=== PATIENT | male | born 1960 | race Hispanic/Latino ===

== ENCOUNTER 2019-08-05 23:42 | Observation (INO) | payer OTHER ==
[2019-08-06] MEDS ORDERED: ONDANSETRON 4 MG/2 ML INJ IV ONE (01:06)
[2019-08-06] MEDS ORDERED: MORPHINE 4 MG/1 ML INJ IV ONE (01:06)
--- NOTE | 2019-08-06 01:23 | XRay Report ---
CHEST 2 VIEWS INDICATION / CLINICAL INFORMATION: Chest pain for one day. History of seizures. COMPARISON: None currently available. FINDINGS: SUPPORT DEVICES: There is a dual chamber left subclavian transvenous pacemaker with the tips of the p acing leads overlying the right atrial appendage and right ventricular apex. HEART / MEDIASTINUM: The heart size and pulmonary vasculature are normal. The aorta is normal in tyson juve. LUNGS / PLEURA: No significant pulmonary or pleural abnormality. No pneumothorax. ADDITIONAL FINDINGS: No significant additional findings. IMPRESSION: No acute findings. Signer Name: Sreekanth Roe MD Signed: 08/06/2019 1:19 AM Workstation Name: [id number]
--- NOTE | 2019-08-06 01:41 | Cat Scan Report ---
CT HEAD/BRAIN WO CON INDICATION / CLINICAL INFORMATION: Left leg weakness, states stumbling gait. Dizziness. TECHNIQUE: All CT scans at this location are performed using CT dose reduction for ALARA by means of automated e xposure control. COMPARISON: 09/18/2012. FINDINGS: There is mild generalized cerebral atrophy. No focal lesion or mass effect is seen. There is no evide nce of intracranial hemorrhage or major vessel occlusion. There is almost complete opacification of the left maxillary antrum. There is mild thickening of the wall of the left maxillary sinus. The other paranasal sinuses and mastoid air cells are clear. The ca lvarium is intact. IMPRESSION: 1. No acute intracranial abnormality is identified. 2. Chronic appearing left maxillary sinusitis is new since 2012. Signer Name: Sreekanth Roe MD Signed: 08/06/2019 1:36 AM Workstation Name: [id number]
[2019-08-06 01:56] LABS: Basophils % (Auto) 0.6 % (0.0-1.8); Eosinophils # (Auto) 0.1 K/mm3 (0.0-0.4); Eosinophils % (Auto) 4.4 % (0.0-4.3); Hematocrit 32.5 % (35.5-45.6); Hemoglobin 10.8 gm/dl (11.8-15.2); Lymphocytes % (Auto) 28.9 % (13.4-35.0); Mean Corpuscular HGB Conc 33 % (32-34); Mean Corpuscular Volume 80 fl (84-94); Monocytes # (Auto) 0.5 K/mm3 (0.0-0.8); Monocytes % (Auto) 15.5 % (0.0-7.3); Platelet Count 228 K/mm3 (140-440); Red Blood Count 4.04 M/mm3 (3.65-5.03); Red Cell Distribution Width 16.9 % (13.2-15.2)
--- NOTE | 2019-08-06 02:04 | Emergency Department Report ---
ED General Adult HPI - General Chief complaint: Chest Pain Stated complaint: SEIZURE, CHEST PAIN Time Seen by Provider: 08/06/19 00:37 Source: patient, EMS Mode of arrival: Stretcher Limitations: Other - History of Present Illness Initial comments: Patient is a 59-year-old male presents emergency room with complaints of substernal and left-sided chest pain that began tonight. He states the pain radiates to his jaw. He describes the pain as a heavy pressure. Patient states that he felt shortness of breath during the pain but it has since resolved. He states he was diaphoretic. He denies any radiation to the back, nausea, vomiting, leg swelling. Patient states that he also had a seizure tonight in the EMS ambulance. It was witnessed by patient's significant other and states that it lasted for a couple seconds and patient was given Versed by EMS. Patient states that for the last couple days he has felt weakness in his lower extremities which caused him to stumble while walking. He states that tonight his left leg feels weaker. He has a past medical history of DM, A. fib on eliquis, pacemaker, hypertension, hyperlipidemia, seizure, DVT/PE. He states he believes he had a stress test approximately year ago in [place]. Severity scale (0 -10): 8 - Related Data Home Medications Medication Instructions Recorded Confirmed Last Taken Apixaban [Eliquis] 5 mg PO BID 08/06/19 08/06/19 08/05/19 AtorvaSTATin [Lipitor] 40 mg PO QHS 08/06/19 08/06/19 08/05/19 EPINEPHrine [Epipen] 08/06/19 Unknown Eslicarbazepine Acetate [Aptiom] 800 mg PO BID 08/06/19 08/06/19 08/05/19 Insulin Glargine [Lantus VIAL] 21 units SUB-Q QHS 08/06/19 08/06/19 08/05/19 Olmesartan/Amlodipin/Hcthiazid 08/06/19 08/05/19 [Tribenzor 40-10-25 mg Tablet] Ondansetron HCl [Zofran] 4 mg 08/06/19 Unknown Pregabalin [Lyrica] 200 mg BID 08/06/19 08/06/19 Unknown Sertraline HCl [Zoloft] 150 mg PO 08/06/19 08/05/19 Zolpidem [Ambien] 6.15 mg PO QHS PRN 08/06/19 08/06/19 Unknown Allergies Allergy/AdvReac Type Severity Reaction Status Date / Time acetaminophen [From Lortab] Allergy Unknown Verified 08/06/19 00:39 hydrocodone Allergy Unknown Verified 08/06/19 00:39 insulin detemir Allergy Unknown Verified 08/06/19 00:39 [From Levemir U-100 Insulin] Iodine and Iodide Containing Allergy Unknown Verified 08/06/19 00:39 Produc ketorolac [From Toradol] Allergy Unknown Verified 08/06/19 00:39 lacosamide [From Vimpat] Allergy Unknown Verified 08/06/19 00:39 latex Allergy Unknown Verified 08/06/19 00:39 levetiracetam [From Keppra] Allergy Unknown Verified 08/06/19 00:39 melon Allergy Unknown Verified 08/06/19 00:39 nitroglycerin Allergy Unknown Verified 08/06/19 00:39 nut - unspecified Allergy Unknown Verified 08/06/19 00:39 oxycodone Allergy Unknown Verified 08/06/19 00:39 phenylephrine Allergy Unknown Verified 08/06/19 00:39 prednisone Allergy Unknown Verified 08/06/19 00:39 propoxyphene [From Darvon] Allergy Unknown Verified 08/06/19 00:39 pyrilamine Allergy Unknown Verified 08/06/19 00:39 tramadol Allergy Unknown Verified 08/06/19 00:39 ED Review of Systems ROS: Stated complaint: SEIZURE, CHEST PAIN Other details as noted in HPI Comment: All other systems reviewed and negative ED Past Medical Hx - Past Medical History Previous Medical History?: Yes Hx Hypertension: Yes Hx Diabetes: Yes Hx Deep Vein Thrombosis: Yes Hx Pulmonary Embolism: Yes Hx Seizures: Yes Hx Asthma: Yes - Social History Smoking Status: Never Smoker - Medications Home Medications: Home Medications Medication Instructions Recorded Confirmed Last Taken Type Apixaban [Eliquis] 5 mg PO BID 08/06/19 08/06/19 08/05/19 History AtorvaSTATin [Lipitor] 40 mg PO QHS 08/06/19 08/06/19 08/05/19 History EPINEPHrine [Epipen] 08/06/19 Unknown History Eslicarbazepine Acetate [Aptiom] 800 mg PO BID 08/06/19 08/06/1920 History Insulin Glargine [Lantus VIAL] 21 units SUB-Q QHS 08/06/19 08/06/19 08/05/19 History Olmesartan/Amlodipin/Hcthiazid 08/06/19 08/05/19 History [Tribenzor 40-10-25 mg Tablet] Ondansetron HCl [Zofran] 4 mg 08/06/19 Unknown History Pregabalin [Lyrica] 200 mg BID 08/06/19 08/06/19 Unknown History Sertraline HCl [Zoloft] 150 mg PO 08/06/19 08/05/19 History Zolpidem [Ambien] 6.15 mg PO QHS PRN 08/06/19 08/06/19 Unknown History ED Physical Exam - General Limitations: Other General appearance: alert, in no apparent distress - Head Head exam: Present: atraumatic, normocephalic - Eye Eye exam: Present: normal appearance, PERRL, EOMI - ENT ENT exam: Present: mucous membranes moist - Respiratory Respiratory exam: Present: normal lung sounds bilaterally. Absent: respiratory distress, wheezes, rales, rhonchi, stridor, chest wall tenderness, accessory muscle use, decreased breath sounds, prolonged expiratory - Cardiovascular Cardiovascular Exam: Present: regular rate, normal rhythm, normal heart sounds. Absent: systolic murmur, diastolic murmur, rubs, gallop - Neurological Exam Neurological exam: Present: alert, oriented X3, CN II-XII intact, other (normal finger to nose, no pronator drift, no facial asymmetry, 5/5 strength in the BUE, 5/5 strength in the RLE, 4/5 strength in the LLE) - Psychiatric Psychiatric exam: Present: normal affect, normal mood - Skin Skin exam: Present: warm, dry, intact ED Course Vital Signs 08/06/19 08/06/19 08/06/19 00:13 00:18 00:55 Temperature 98.0 F Pulse Rate 67 74 Respiratory 18 18 12 Rate Blood Pressure 141/73 141/73 O2 Sat by Pulse 99 98 Oximetry 08/06/19 08/06/19 08/06/19 01:00 01:30 02:00 Temperature Pulse Rate 68 62 63 Respiratory 13 14 10 L Rate Blood Pressure 141/73 133/79 152/79 O2 Sat by Pulse 99 98 97 Oximetry 08/06/19 02:31 Temperature Pulse Rate 65 Respiratory 11 L Rate Blood Pressure 133/79 O2 Sat by Pulse 96 Oximetry ED Medical Decision Making - Lab Data Result diagrams: 08/06/19 01:29 08/06/19 01:29 Critical care attestation.: If time is entered above; I have spent that time in minutes in the direct care of this critically ill patient, excluding procedure time. ED Disposition Clinical Impression: Seizure Chest pain Qualifiers: Chest pain type: unspecified Qualified Code(s): R07.9 - Chest pain, unspecified Leg weakness Qualifiers: Laterality: left Qualified Code(s): R29.898 - Other symptoms and signs involving the musculoskeletal system Disposition: -09 OP ADMIT IP TO THIS HOSP Is pt being admited?: Yes Does the pt Need Aspirin: Yes Condition: Fair Instructions: Chest Pain (ED) Time of Disposition: 03:55 Print Language: MONGOLIAN
[2019-08-06 02:05] LABS: INR 0.96 (0.87-1.13)
[2019-08-06 02:06] LABS: Partial Thromboplastin Time 23.8 Sec. (24.2-36.6)
[2019-08-06 02:21] LABS: Alanine Aminotransferase 15 units/L (7-56); Albumin 4.2 g/dL (3.9-5); BUN/Creatinine Ratio 16; Blood Urea Nitrogen 11 mg/dL (9-20); Calcium 9.4 mg/dL (8.4-10.2); Hemolysis Index 4
[2019-08-06] MEDS ORDERED: HYDROmorphone 1 MG/1 ML INJ IV ONE (03:44)
[2019-08-06] MEDS ORDERED: ASPIRIN 81 MG TAB CHEW PO ONE (03:55)
[2019-08-06] MEDS ORDERED: ONDANSETRON 4 MG/2 ML INJ IV PRN ×2 (03:56→08:10)
--- NOTE | 2019-08-06 04:34 | History and Physical Report ---
History of Present Illness Date of examination: 08/06/19 Date of admission: 08/06/2019 Chief complaint: " Not feeling well since yesterday" History of present illness: Patient is 59-year-old male with a past medical history of asthma, type 2 diabetes, DVT, A. fib, seizures and hypertension. He presents to ER with complaints of general weakness and not feeling well since yesterday. Patient states he was at dinner this evening when he started having left-sided chest pain. He describes it as sharp in nature, 3 out of 10 and radiates to jaw. Patient also admits recent fall this evening with bruising to right side chest wall, he states he has been feeling unsteady since yesterday evening. He reports Seizure activity en route to [facility] by EMS that was witnessed by partner and lasting for a couple seconds. Patient states prior to my his last seizure was yesterday and prior to that 1 month ago. He denies headaches, dizziness, nausea or vomiting at this time. Past History Past Medical History: other (As noted in HPI) Past Surgical History: cholecystectomy, Other (Pacemaker) Social history: Family history: hypertension Medications and Allergies Allergies Allergy/AdvReac Type Severity Reaction Status Date / Time acetaminophen [From Lortab] Allergy Unknown Verified 08/06/19 00:39 hydrocodone Allergy Unknown Verified 08/06/19 00:39 insulin detemir Allergy Unknown Verified 08/06/19 00:39 [From Levemir U-100 Insulin] Iodine and Iodide Containing Allergy Unknown Verified 08/06/19 00:39 Produc ketorolac [From Toradol] Allergy Unknown Verified 08/06/19 00:39 lacosamide [From Vimpat] Allergy Unknown Verified 08/06/19 00:39 latex Allergy Unknown Verified 08/06/19 00:39 levetiracetam [From Keppra] Allergy Unknown Verified 08/06/19 00:39 melon Allergy Unknown Verified 08/06/19 00:39 nitroglycerin Allergy Unknown Verified 08/06/19 00:39 nut - unspecified Allergy Unknown Verified 08/06/19 00:39 oxycodone Allergy Unknown Verified 08/06/19 00:39 phenylephrine Allergy Unknown Verified 08/06/19 00:39 prednisone Allergy Unknown Verified 08/06/19 00:39 propoxyphene [From Darvon] Allergy Unknown Verified 08/06/19 00:39 pyrilamine Allergy Unknown Verified 08/06/19 00:39 tramadol Allergy Unknown Verified 08/06/19 00:39 Home Medications Medication Instructions Recorded Confirmed Last Taken Type Apixaban [Eliquis] 5 mg PO BID 08/06/19 08/06/19 08/05/19 History AtorvaSTATin [Lipitor] 40 mg PO QHS 08/06/19 08/06/19 08/05/19 History Eslicarbazepine Acetate [Aptiom] 800 mg PO BID 08/06/19 08/06/19 08/05/19 History Insulin Glargine [Lantus VIAL] 21 units SUB-Q QHS 08/06/19 08/06/19 08/05/19 History Lispro Insulin [HumaLOG] 0 unit SQ QACHS 08/06/19 08/06/19 Unknown History Olmesartan/Amlodipin/Hcthiazid 1 tab PO QDAY 08/06/19 08/06/19 Unknown History [Tribenzor 40-10-25 mg Tablet] Ondansetron HCl [Zofran] 4 mg PO Q6HR PRN 08/06/19 08/06/19 Unknown History Pregabalin [Lyrica] 200 mg QAM 08/06/19 08/06/19 1 Day Ago History ~08/05/19 Pregabalin [Lyrica] 400 mg PO QHS 08/06/19 08/06/19 1 Day Ago History ~08/05/19 Sertraline HCl [Zoloft] 150 mg PO QHS 08/06/19 08/06/19 08/05/19 History Zolpidem [Ambien] 6.15 mg PO QHS PRN 08/06/19 08/06/19 Unknown History Active Meds: Active Medications Ondansetron HCl (Zofran) 4 mg IV Q8H PRN PRN Reason: Nausea And Vomiting Sodium Chloride (Sodium Chloride Flush Syringe 10 Ml) 10 ml IV BID LORI Sodium Chloride (Sodium Chloride Flush Syringe 10 Ml) 10 ml IV PRN PRN PRN Reason: LINE FLUSH Review of Systems All systems: negative Constitutional: fatigue, weakness Cardiovascular: chest pain Neurological: gait dysfunction Exam - Physical Exam Narrative exam: General appearance: Present: no acute distress - EENT Eyes: Present: PERRL ENT: hearing intact, clear oral mucosa - Neck Neck: Present: supple, normal ROM - Respiratory Respiratory effort: normal Respiratory: bilateral: CTA - Cardiovascular Heart Sounds: Present: S1 & S2. Absent: rub, click - Extremities Extremities: pulses symmetrical, No edema Peripheral Pulses: within normal limits - Abdominal General gastrointestinal: Present: soft, non-tender, non-distended, normal bowel sounds genitourinary: Present: normal - Integumentary Integumentary: Present: clear, warm, dry - Musculoskeletal Musculoskeletal: strength equal bilaterally - Psychiatric Psychiatric: appropriate mood/affect, intact judgment & insight - Neurologic Neurologic: CNII-XII intact, moves all extremities - Constitutional Vitals: Temp Pulse Resp BP Pulse Ox 98.0 F 65 11 L 133/79 96 08/06/19 00:13 08/06/19 02:31 08/06/19 02:31 08/06/19 02:31 08/06/19 02:31 Results - Labs CBC & Chem 7: 08/06/19 11:04 08/06/19 11:04 Labs: Laboratory Last Values WBC 3.4 K/mm3 (4.5-11.0) L 08/06/19 01:29 RBC 4.04 M/mm3 (3.65-5.03) 08/06/19 01:29 Hgb 10.8 gm/dl (11.8-15.2) L 08/06/19 01:29 Hct 32.5 % (35.5-45.6) L 08/06/19 01:29 MCV 80 fl (84-94) L 08/06/19 01:29 MCH 27 pg (28-32) L 08/06/19 01:29 MCHC 33 % (32-34) 08/06/19 01:29 RDW 16.9 % (13.2-15.2) H 08/06/19 01:29 Plt Count 228 K/mm3 (140-440) 08/06/19 01:29 Lymph % (Auto) 28.9 % (13.4-35.0) 08/06/19 01:29 [place] % (Auto) 15.5 % (0.0-7.3) H 08/06/19 01:29 Eos % (Auto) 4.4 % (0.0-4.3) H 08/06/19 01:29 Baso % (Auto) 0.6 % (0.0-1.8) 08/06/19 01:29 Lymph # 1.0 K/mm3 (1.2-5.4) L 08/06/19 01:29 [place] # 0.5 K/mm3 (0.0-0.8) 08/06/19 01:29 Eos # 0.1 K/mm3 (0.0-0.4) 08/06/19 01:29 Baso # 0.0 K/mm3 (0.0-0.1) 08/06/19 01:29 Seg Neutrophils % 50.6 % (40.0-70.0) 08/06/19 01:29 Seg Neutrophils # 1.7 K/mm3 (1.8-7.7) L 08/06/19 01:29 PT 12.9 Sec. (12.2-14.9) 08/06/19 01:29 INR 0.96 (0.87-1.13) 08/06/19 01:29 APTT 23.8 Sec. (24.2-36.6) L 08/06/19 01:29 Sodium 144 mmol/L (137-145) 08/06/19 01:29 Potassium 3.9 mmol/L (3.6-5.0) 08/06/19 01:29 Chloride 105.2 mmol/L (98-107) 08/06/19 01:29 Carbon Dioxide 26 mmol/L (22-30) 08/06/19 01:29 Anion Gap 17 mmol/L 08/06/19 01:29 BUN 11 mg/dL (9-20) 08/06/19 01:29 Creatinine 0.7 mg/dL (0.8-1.5) L 08/06/19 01:29 Estimated GFR > 60 ml/min 08/06/19 01:29 BUN/Creatinine Ratio 16 % 08/06/19 01:29 Glucose 159 mg/dL (75-100) H 08/06/19 01:29 Calcium 9.4 mg/dL (8.4-10.2) 08/06/19 01:29 Phosphorus 2.80 mg/dL (2.5-4.5) 08/06/19 01:29 Magnesium 1.90 mg/dL (1.7-2.3) 08/06/19 01:29 Total Bilirubin < 0.20 mg/dL (0.1-1.2) 08/06/19 01:29 AST 20 units/L (5-40) 08/06/19 01:29 ALT 15 units/L (7-56) 08/06/19 01:29 Alkaline Phosphatase 113 units/L (35-129) 08/06/19 01:29 Troponin T < 0.010 ng/mL (0.00-0.029) 08/06/19 01:29 Total Protein 7.1 g/dL (6.3-8.2) 08/06/19 01:29 Albumin 4.2 g/dL (3.9-5) 08/06/19 01: Albumin/Globulin Ratio 1.4 % 08/06/19 01:29 - Imaging and Cardiology Chest x-ray: report reviewed (No acute findings.) CT Scan - head: report reviewed (1. No acute intracranial abnormality is identified. 2. Chronic appearing left maxillary sinusitis is new since 2012.) Assessment and Plan Assessment and plan: The patient has been seen in conjunction with Dr. Lantigua who agrees with the assessment and plan of care. Atypical Chest Pain -Initiate chest pain protocol -Continuous telemetry monitoring -Continue supportive care -Pain mgmt -Troponin normal x1, will continue to trend -EKG unrevealing for acute ischemic abnormalities -Cardiology consulted Seizure -Continue home meds once reconciled -Implement seizure precautions -Consult neurology -Frequent neuro checks -Supportive care Diabetes mellitus -Accu-Chek achs -Monitor labs DVT -SCDs bilaterally -prophylaxis with Lovenox VTE prophylaxis?: Chemical Plan of care discussed with patient/family: Yes
[2019-08-06] MEDS ORDERED: HYDROmorphone 1 MG/1 ML INJ IV PRN (05:34)
[2019-08-06] MEDS ORDERED: MORPHINE 2 MG/1 ML INJ IV PRN (08:10)
[2019-08-06] MEDS ORDERED: MAGNESIUM HYDROXIDE (MOM) ORAL LIQD UDC PO PRN (08:10)
[2019-08-06] MEDS ORDERED: ACETAMINOPHEN 325 MG TAB PO PRN (08:10)
[2019-08-06] MEDS ORDERED: LORazepam 2 MG/ML VIAL ONE ×2 (10:52→12:07)
--- NOTE | 2019-08-06 11:01 | Progress Note ---
Subjective Date of service: 08/06/19 Interval history: clearly there is moderate frontal cortical atrophy that I would not expect to see at age 59 this bears checking out recommend definitely MRI of the brain Objective - Vital Sign Vital Signs - 12hr 08/06/19 08/06/19 08/06/19 00:13 00:18 00:55 Temperature 98.0 F Pulse Rate 67 74 Respiratory 18 18 12 Rate Blood Pressure 141/73 141/73 Blood Pressure [Right] O2 Sat by Pulse 99 98 Oximetry 08/06/19 08/06/19 08/06/19 01:00 01:30 02:00 Temperature Pulse Rate 68 62 63 Respiratory 13 14 10 L Rate Blood Pressure 141/73 133/79 152/79 Blood Pressure [Right] O2 Sat by Pulse 99 98 97 Oximetry 08/06/19 08/06/19 08/06/19 02:31 03:00 03:31 Temperature Pulse Rate 65 60 63 Respiratory 11 L 12 12 Rate Blood Pressure 133/79 142/79 142/79 Blood Pressure [Right] O2 Sat by Pulse 96 96 98 Oximetry 08/06/19 08/06/19 08/06/19 04:00 04:31 05:01 Temperature Pulse Rate 60 61 67 Respiratory 11 L 13 13 Rate Blood Pressure 154/79 154/79 155/73 Blood Pressure [Right] O2 Sat by Pulse 97 100 90 Oximetry 08/06/19 08/06/19 08/06/19 05:31 06:00 06:31 Temperature Pulse Rate 71 70 70 Respiratory 11 L 11 L 12 Rate Blood Pressure 155/73 158/83 158/83 Blood Pressure [Right] O2 Sat by Pulse 99 95 97 Oximetry 08/06/19 08/06/19 08/06/19 07:00 08:00 08:31 Temperature Pulse Rate 70 70 70 Respiratory 11 L 13 13 Rate Blood Pressure 159/93 155/93 155/93 Blood Pressure [Right] O2 Sat by Pulse 97 97 99 Oximetry 08/06/19 08/06/19 08/06/19 08:35 08:41 08:50 Temperature Pulse Rate 70 71 70 Respiratory 13 12 15 Rate Blood Pressure 155/93 155/93 Blood Pressure 155/93 [Right] O2 Sat by Pulse 99 98 Oximetry 08/06/19 09:28 Temperature 97.9 F Pulse Rate 70 Respiratory 18 Rate Blood Pressure 157/92 Blood Pressure [Right] O2 Sat by Pulse 98 Oximetry - Laboratory Findings CBC and BMP: 08/06/19 01:29 08/06/19 01:29 Abnormal Lab Findings: Abnormal Labs 08/06/19 08/06/19 08/06/19 01:29 01:29 01:29 WBC 3.4 L Hgb 10.8 L Hct 32.5 L MCV 80 L MCH 27 L RDW 16.9 H Mcmullen % (Auto) 15.5 H Eos % (Auto) 4.4 H Lymph # 1.0 L Seg Neutrophils # 1.7 L APTT 23.8 L Creatinine 0.7 L Glucose 159 H
[2019-08-06 11:27] LABS: Basophils % (Auto) 0.9 % (0.0-1.8); Eosinophils # (Auto) 0.1 K/mm3 (0.0-0.4); Eosinophils % (Auto) 4.7 % (0.0-4.3); Hematocrit 33.1 % (35.5-45.6); Hemoglobin 10.6 gm/dl (11.8-15.2); Lymphocytes # (Auto) 0.9 K/mm3 (1.2-5.4); Lymphocytes % (Auto) 30.2 % (13.4-35.0); Mean Corpuscular HGB Conc 32 % (32-34); Mean Corpuscular Volume 81 fl (84-94); Monocytes # (Auto) 0.5 K/mm3 (0.0-0.8); Monocytes % (Auto) 15.4 % (0.0-7.3); Platelet Count 225 K/mm3 (140-440); Red Blood Count 4.08 M/mm3 (3.65-5.03); Red Cell Distribution Width 16.3 % (13.2-15.2)
[2019-08-06 11:39] LABS: BUN/Creatinine Ratio 13; Blood Urea Nitrogen 8 mg/dL (9-20); Calcium 9.1 mg/dL (8.4-10.2)
[2019-08-06 11:40] LABS: Hemolysis Index 1
--- NOTE | 2019-08-06 12:33 | Event Note ---
Patient seen and evaluated by me. Patient found to have atypical presentation of seizure. Suspect malingering for secondary gain. Patient seizure activity spontaneously resolved, and patient requesting IV opioid therapy. A review of patient records reveals history of IV drug dependence. Continue supportive care. Neurology consulted. Discharge planning in a.m.
--- NOTE | 2019-08-06 12:50 | Consultation ---
History of Present Illness Consult date: 08/06/19 Requesting physician: NORAH CALDERON Consult reason: chest pain History of present illness: 59-year-old patient with history of pacemaker HIV history of drug abuse seizure disorder called EMS for having seizures disorder left-sided chest pain. Patient another seizure activity. Patient history is given by his partner and review records patient's cardiac cath revealed normal coronary stent in April 2019. Patient states some exertional type symptoms as per the partner. Noncardiac chest pain as a review of records from [facility] Past History Past Medical History: diabetes, hypertension, hyperlipidemia, other (As noted in HPI, hiv, htn) Past Surgical History: cholecystectomy, Other (Pacemaker) Social history: Family history: hypertension Medications and Allergies Allergies Allergy/AdvReac Type Severity Reaction Status Date / Time acetaminophen [From Lortab] Allergy Unknown Verified 08/06/19 00:39 hydrocodone Allergy Unknown Verified 08/06/19 00:39 insulin detemir Allergy Unknown Verified 08/06/19 00:39 [From Levemir U-100 Insulin] Iodine and Iodide Containing Allergy Unknown Verified 08/06/19 00:39 Produc ketorolac [From Toradol] Allergy Unknown Verified 08/06/19 00:39 lacosamide [From Vimpat] Allergy Unknown Verified 08/06/19 00:39 latex Allergy Unknown Verified 08/06/19 00:39 levetiracetam [From Keppra] Allergy Unknown Verified 08/06/19 00:39 melon Allergy Unknown Verified 08/06/19 00:39 nitroglycerin Allergy Unknown Verified 08/06/19 00:39 nut - unspecified Allergy Unknown Verified 08/06/19 00:39 oxycodone Allergy Unknown Verified 08/06/19 00:39 phenylephrine Allergy Unknown Verified 08/06/19 00:39 prednisone Allergy Unknown Verified 08/06/19 00:39 propoxyphene [From Darvon] Allergy Unknown Verified 08/06/19 00:39 pyrilamine Allergy Unknown Verified 08/06/19 00:39 tramadol Allergy Unknown Verified 08/06/19 00:39 Home Medications Medication Instructions Recorded Confirmed Last Taken Type Apixaban [Eliquis] 5 mg PO BID 08/06/19 08/06/19 08/05/19 History AtorvaSTATin [Lipitor] 40 mg PO QHS 08/06/19 08/06/19 08/05/19 History Eslicarbazepine Acetate [Aptiom] 800 mg PO BID 08/06/19 08/06/19 08/05/19 History Insulin Glargine [Lantus VIAL] 21 units SUB-Q QHS 08/06/19 08/06/19 08/05/19 History Lispro Insulin [HumaLOG] 0 unit SQ QACHS 08/06/19 08/06/19 Unknown History Olmesartan/Amlodipin/Hcthiazid 1 tab PO QDAY 08/06/19 08/06/19 Unknown History [Tribenzor 40-10-25 mg Tablet] Ondansetron HCl [Zofran] 4 mg PO Q6HR PRN 08/06/19 08/06/19 Unknown History Pregabalin [Lyrica] 200 mg QAM 08/06/19 08/06/19 1 Day Ago History ~08/05/19 Pregabalin [Lyrica] 400 mg PO QHS 08/06/19 08/06/19 1 Day Ago History ~08/05/19 Sertraline HCl [Zoloft] 150 mg PO QHS 08/06/19 08/06/19 08/05/19 History Zolpidem [Ambien] 6.15 mg PO QHS PRN 08/06/19 08/06/19 Unknown History Active Meds: Active Medications Acetaminophen (Tylenol) 650 mg PO Q4H PRN PRN Reason: Pain MILD(1-3)/Fever >100.5/MATHUR Aspirin (Ecotrin) 325 mg PO QDAY LORI Hydromorphone HCl (Dilaudid) 0.25 mg IV Q3H PRN PRN Reason: Pain, Moderate (4-6) Phenytoin 1,000 mg/ Sodium (Chloride) 270 mls @ 500 mls/hr IV ONCE ONE Stop: 08/06/19 13:32 Magnesium Hydroxide (Milk Of Magnesia) 30 ml PO Q4H PRN PRN Reason: Constipation Morphine Sulfate (Morphine) 2 mg IV Q4H PRN PRN Reason: Pain, Moderate (4-6) Last Admin: 08/06/19 08:42 Dose: 2 mg Documented by: Ondansetron HCl (Zofran) 4 mg IV Q8H PRN PRN Reason: Nausea And Vomiting Sodium Chloride (Sodium Chloride Flush Syringe 10 Ml) 10 ml IV BID [facility] Last Admin: 08/06/19 11:08 Dose: 10 ml Documented by: Sodium Chloride (Sodium Chloride Flush Syringe 10 Ml) 10 ml IV PRN PRN PRN Reason: LINE FLUSH Review of Systems ROS unobtainable: due to mental status All systems: negative (as per) Physical Examination Vital Signs Temp Pulse Resp BP Pulse Ox 98.0 F 67 18 141/73 99 08/06/19 00:13 08/06/19 00:13 08/06/19 00:13 08/06/19 00:13 08/06/19 00:13 General appearance: no acute distress, well-nourished HEENT: Positive: PERRL, Mucus Membranes Moist Neck: Positive: neck supple, trachea midline Cardiac: Positive: Reg Rate and Rhythm, S1/S2. Negative: Audible Murmur Lungs: Positive: clear to auscultation, Normal Breath Sounds Neuro: Positive: Other (sedated) Abdomen: Positive: Soft, Active Bowel Sounds. Negative: Tender, Distended Male genitourinary: Positive: normal Skin: Positive: Clear Incision: Cardiac Cath Site Musculoskeletal: No Pain, Normal Range of Motion Extremities: Present: normal. Absent: edema Results 08/06/19 11:04 08/06/19 11:04 Cardiac Enzymes 08/06/19 Range/Units 01:29 AST 20 (5-40) units/L Coagulation 08/06/19 Range/Units 01:29 PT 12.9 (12.2-14.9) Sec. INR 0.96 (0.87-1.13) APTT 23.8 L (24.2-36.6) Sec. CBC 08/06/19 08/06/19 Range/Units 01:29 11:04 WBC 3.4 L 3.1 L (4.5-11.0) K/mm3 RBC 4.04 4.08 (3.65-5.03) M/mm3 Hgb 10.8 L 10.6 L (11.8-15.2) gm/dl Hct 32.5 L 33.1 L (35.5-45.6) % Plt Count 228 225 (140-440) K/mm3 Lymph # 1.0 L 0.9 L (1.2-5.4) K/mm3 [place]isher # 0.5 0.5 (0.0-0.8) K/mm3 Eos # 0.1 0.1 (0.0-0.4) K/mm3 Baso # 0.0 0.0 (0.0-0.1) K/mm3 Comprehensive Metabolic Panel 08/06/19 08/06/19 Range/Units 01:29 11:04 Sodium 144 144 (137-145) mmol/L Potassium 3.9 3.6 (3.6-5.0) mmol/L Chloride 105.2 104.8 (98-107) mmol/L Carbon Dioxide 26 25 (22-30) mmol/L BUN 11 8 L (9-20) mg/dL Creatinine 0.7 L 0.6 L (0.8-1.5) mg/dL Glucose 159 H 129 H (75-100) mg/dL Calcium 9.4 9.1 (8.4-10.2) mg/dL AST 20 (5-40) units/L ALT 15 (7-56) units/L Alkaline Phosphatase 113 (35-129) units/L Total Protein 7.1 (6.3-8.2) g/dL Albumin 4.2 (3.9-5) g/dL - Imaging and Cardiology Cardiac cath: report reviewed (05/24/2019 normal coronaries normal LV function done at [facility]) EKG interpretations - Telemetry EKG Rhythm: Sinus Rhythm (normal sinus rhythm and no ST-T abnormalities) Assessment and Plan Atypical chest pain S seizure disorder HIV Hypertension aoltered Mental status secondary to seizure Diabetes hyperlipidemia Recommend in view of records patient has normal coronaries on cardiac cath negative troponin and normal EKG patient's left-sided chest pain is noncardiac may be discharged from cardiovascular point of view, discussed the result with patient's partner
[2019-08-06] MEDS ORDERED: PHENYTOIN 1,000 MG in SODIUM CHLORIDE 0.9% 250ML 250 ML IV ONE (13:00)
[2019-08-06] MEDS ORDERED: LORazepam 2 MG/ML VIAL IV ONE (16:16)
[2019-08-06] MEDS ORDERED: INSULIN LISPRO 100 UNIT/ML SUB-Q SCH (16:30)
[2019-08-06 18:02] VITALS: BP 187/86
[2019-08-07] MEDS ORDERED: ASPIRIN EC 325 MG TAB PO SCH (10:00)
== END 2019-08-06 18:42 | disposition left against medical advice (07) ==
LOC: ED 23:42 → 4A 08-06 03:56
PROVIDERS: ADMIT Internal Medicine Geriatric Medicine; ATTEND Internal Medicine
DX: R07.89 Other chest pain (principal); J45.909 Unspecified asthma, uncomplicated; E11.9 Type 2 diabetes mellitus without complications; I48.91 Unspecified atrial fibrillation; R41.82 Altered mental status, unspecified; I10 Essential (primary) hypertension; G40.909 Epilepsy, unspecified, not intractable, without status epilepticus; E78.5 Hyperlipidemia, unspecified; Z79.01 Long term (current) use of anticoagulants; Z79.82 Long term (current) use of aspirin
CPT/HCPCS: 36415; 70450; 71046; 80048; 80053; 82962; 83735; 84100; 84484; 85025; 85610; 85730; 93005; 93010; 96365; 96372; 96375; 96376; 99284; G0378; J1165; J1170; J2060; J2270; J2405; J7050; 96366

== ENCOUNTER 2020-09-29 12:17 | Observation (INO) | payer BC, OTHER ==
[2020-09-29] MEDS ORDERED: ASPIRIN 325 MG TAB PO ONE ×2 (12:24→22:35)
[2020-09-29] MEDS ORDERED: MORPHINE 4 MG/1 ML INJ IV ONE ×2 (12:41→15:26)
--- NOTE | 2020-09-29 12:46 | Emergency Department Report ---
ED Chest Pain HPI - General Chief Complaint: Chest Pain Stated Complaint: CHEST PAIN Time Seen by Provider: 09/29/20 12:34 Source: patient Mode of arrival: Stretcher Limitations: No Limitations - History of Present Illness Initial Comments: This is a 60-year-old male who presents to the emergency department via EMS with a complaint of some midsternal to left-sided chest pain, along with some radiation to the left shoulder and jaw, that started prior to presentation. It is associated with some nausea and vomiting. He denies any shortness of breath, fever, diaphoresis, lower extremity swelling. The patient says that he took some Tylenol for his symptoms without any relief. 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 No recent travel or sick contacts at home. His primary care physician is a Dr. Uriel Pickens and his rn acute is a Dr. Gomez. Patient says that he last had a cardiac catheterization done in 2019 that was negative at that time. The patient was seen here about 14 months ago for recurrent seizures and some chest discomfort and had a cardiology consultation with [facility] at that time. - Related Data Home Medications Medication Instructions Recorded Confirmed Last Taken Apixaban [Eliquis] 5 mg PO BID 08/06/19 09/29/20 08/05/19 AtorvaSTATin [Lipitor] 40 mg PO QHS 08/06/19 09/29/20 08/05/19 Eslicarbazepine Acetate [Aptiom] 800 mg PO BID 08/06/19 09/29/20 08/05/19 Insulin Glargine [Lantus VIAL] 28 units SUB-Q QHS 08/06/19 09/29/20 08/05/19 Lispro Insulin [HumaLOG] 0 unit SQ QACHS 08/06/19 09/29/20 Unknown Ondansetron HCl [Zofran] 4 mg PO Q6HR PRN 08/06/19 09/29/20 Unknown Pregabalin [Lyrica] 200 mg QAM 08/06/19 09/29/20 1 Day Ago ~08/05/19 Pregabalin [Lyrica] 400 mg PO QHS 08/06/19 09/29/20 1 Day Ago ~08/05/19 Sertraline HCl [Zoloft] 150 mg PO QHS 08/06/19 09/29/20 08/05/19 Zolpidem [Ambien] 6.15 mg PO QHS PRN 08/06/19 09/29/20 Unknown Allergies Allergy/AdvReac Type Severity Reaction Status Date / Time acetaminophen [From Lortab] Allergy Unknown Verified 08/06/19 00:39 hydrocodone Allergy Unknown Verified 08/06/19 00:39 insulin detemir Allergy Unknown Verified 08/06/19 00:39 [From Levemir U-100 Insulin] Iodine and Iodide Containing Allergy Unknown Verified 08/06/19 00:39 Produc ketorolac [From Toradol] Allergy Unknown Verified 08/06/19 00:39 lacosamide [From Vimpat] Allergy Unknown Verified 08/06/19 00:39 latex Allergy Unknown Verified 08/06/19 00:39 levetiracetam [From Keppra] Allergy Unknown Verified 08/06/19 00:39 melon Allergy Unknown Verified 08/06/19 00:39 nitroglycerin Allergy Unknown Verified 08/06/19 00:39 nut - unspecified Allergy Unknown Verified 08/06/19 00:39 oxycodone Allergy Unknown Verified 08/06/19 00:39 phenylephrine Allergy Unknown Verified 08/06/19 00:39 prednisone Allergy Unknown Verified 08/06/19 00:39 propoxyphene [From Darvon] Allergy Unknown Verified 08/06/19 00:39 pyrilamine Allergy Unknown Verified 08/06/19 00:39 tramadol Allergy Unknown Verified 08/06/19 00:39 Heart Score - HEART Score History: Moderately suspicious EKG: Normal Age: 45-65 Risk factors: > 3 risk factors or hx of atherosclerotic disease Troponin: < normal limit HEART Score: 4 - Critical Actions Critical Actions: 0-3 pts:0.9-1.7%risk of adverse cardiac event.Candidate for discharge ED Review of Systems ROS: Stated complaint: CHEST PAIN Other details as noted in HPI Comment: All other systems reviewed and negative Constitutional: denies: chills, fever Eyes: denies: eye pain, vision change ENT: denies: ear pain, throat pain Respiratory: denies: cough, shortness of breath Cardiovascular: chest pain. denies: palpitations, edema Gastrointestinal: nausea. denies: abdominal pain Genitourinary: denies: dysuria, discharge Musculoskeletal: arthralgia. denies: back pain Skin: denies: rash, lesions Neurological: denies: headache, weakness ED Past Medical Hx - Past Medical History Previous Medical History?: Yes Hx Hypertension: Yes Hx Diabetes: Yes Hx Deep Vein Thrombosis: Yes Hx Pulmonary Embolism: Yes Hx Seizures: Yes Hx Asthma: Yes - Surgical History Past Surgical History?: Yes - Social History Smoking Status: Never Smoker Substance Use Type: None - Medications Home Medications: Home Medications Medication Instructions Recorded Confirmed Last Taken Type Apixaban [Eliquis] 5 mg PO BID 08/06/19 09/29/20 08/05/19 History AtorvaSTATin [Lipitor] 40 mg PO QHS 08/06/19 09/29/20 08/05/19 History Eslicarbazepine Acetate [Aptiom] 800 mg PO BID 08/06/19 09/29/20 08/05/19 History Insulin Glargine [Lantus VIAL] 28 units SUB-Q QHS 08/06/19 09/29/20 08/05/19 History Lispro Insulin [HumaLOG] 0 unit SQ QACHS 08/06/19 09/29/20 Unknown History Ondansetron HCl [Zofran] 4 mg PO Q6HR PRN 08/06/19 09/29/20 Unknown History Pregabalin [Lyrica] 200 mg QAM 08/06/19 09/29/20 1 Day Ago History ~08/05/19 Pregabalin [Lyrica] 400 mg PO QHS 08/06/19 09/29/20 1 Day Ago History ~08/05/19 Sertraline HCl [Zoloft] 150 mg PO QHS 08/06/19 09/29/20 08/05/19 History Zolpidem [Ambien] 6.15 mg PO QHS PRN 08/06/19 09/29/20 Unknown History ED Physical Exam - General Limitations: No Limitations - Other Other exam information: GENERAL: The patient is well-developed well-nourished. HENT: Normocephalic. Atraumatic. Patient has moist mucous membranes. EYES: Extraocular motions are intact. NECK: Supple. Trachea is midline. CHEST/LUNGS: Clear to auscultation. There is no respiratory distress noted. HEART/CARDIOVASCULAR: Regular. There is no tachycardia. There is no murmur. ABDOMEN: Abdomen is soft, nontender. Patient has normal bowel sounds. SKIN: Skin is warm and dry. NEURO: The patient is awake, alert, and oriented. The patient is cooperative. The patient has no focal neurologic deficits. Normal speech. MUSCULOSKELETAL: There is no tenderness or deformity. There is no limitation range of motion. ED Course Vital Signs 09/29/20 09/29/20 12:22 15:28 Temperature 98 F Pulse Rate 72 84 Respiratory 16 16 Rate Blood Pressure 155/93 Blood Pressure 108/78 [Left] O2 Sat by Pulse 98 95 Oximetry BRENNAN score - Brennan Score Age > 65: (0) No Aspirin use within the Past 7 Days: (0) No 3 or more CAD Risk Factors: (1) Yes 2 or more Angina events in past 24 hrs: (1) Yes Known CAD with more than 50% Stenosis: (0) No Elevated Cardiac Markers: (0) No ST Deviation Greater than 0.5mm: (0) No BRENNAN Score: 2 ED Medical Decision Making - Lab Data Result diagrams: 09/29/20 Unknown 09/29/20 Unknown Lab Results 09/29/20 09/29/20 09/29/20 Range/Units 15:31 15:31 15:31 WBC (4.5-11.0) K/mm3 RBC (3.65-5.03) M/mm3 Hgb (11.8-15.2) gm/dl Hct (35.5-45.6) % MCV (84-94) fl MCH (28-32) pg MCHC (32-34) % RDW (13.2-15.2) % Plt Count (140-440) K/mm3 Lymph % (Auto) (13.4-35.0) % Elk % (Auto) (0.0-7.3) % Eos % (Auto) (0.0-4.3) % Baso % (Auto) (0.0-1.8) % Lymph # (Auto) (1.2-5.4) K/mm3 Elk # (Auto) (0.0-0.8) K/mm3 Eos # (Auto) (0.0-0.4) K/mm3 Baso # (Auto) (0.0-0.1) K/mm3 Seg Neutrophils % (40.0-70.0) % Seg Neutrophils # (1.8-7.7) K/mm3 Sodium (137-145) mmol/L Potassium (3.6-5.0) mmol/L Chloride (98-107) mmol/L Carbon Dioxide (22-30) mmol/L Anion Gap mmol/L BUN (9-20) mg/dL Creatinine (0.8-1.3) mg/dL Estimated GFR ml/min BUN/Creatinine Ratio % Glucose (75-100) mg/dL Calcium (8.4-10.2) mg/dL Magnesium 1.80 (1.7-2.3) mg/dL Troponin T < 0.010 (0.00-0.029) ng/mL NT-Pro-B Natriuret Pep 35.39 (0-900) pg/mL 09/29/20 09/29/20 Range/Units Unknown Unknown WBC 3.9 L (4.5-11.0) K/mm3 RBC 4.13 (3.65-5.03) M/mm3 Hgb 12.5 (11.8-15.2) gm/dl Hct 37.0 (35.5-45.6) % MCV 90 (84-94) fl MCH 30 (28-32) pg MCHC 34 (32-34) % RDW 15.6 H (13.2-15.2) % Plt Count 160 (140-440) K/mm3 Lymph % (Auto) 19.5 (13.4-35.0) % Elk % (Auto) 12.4 H (0.0-7.3) % Eos % (Auto) 3.3 (0.0-4.3) % Baso % (Auto) 0.5 (0.0-1.8) % Lymph # (Auto) 0.8 L (1.2-5.4) K/mm3 Elk # (Auto) 0.5 (0.0-0.8) K/mm3 Eos # (Auto) 0.1 (0.0-0.4) K/mm3 Baso # (Auto) 0.0 (0.0-0.1) K/mm3 Seg Neutrophils % 64.3 (40.0-70.0) % Seg Neutrophils # 2.5 (1.8-7.7) K/mm3 Sodium 136 L (137-145) mmol/L Potassium 4.2 (3.6-5.0) mmol/L Chloride 98.7 (98-107) mmol/L Carbon Dioxide 29 (22-30) mmol/L Anion Gap 13 mmol/L BUN 13 (9-20) mg/dL Creatinine 0.8 (0.8-1.3) mg/dL Estimated GFR > 60 ml/min BUN/Creatinine Ratio 16 % Glucose 156 H (75-100) mg/dL Calcium 9.4 (8.4-10.2) mg/dL Magnesium (1.7-2.3) mg/dL Troponin T < 0.010 (0.00-0.029) ng/mL NT-Pro-B Natriuret Pep (0-900) pg/mL - EKG Data -: EKG Interpreted by Me EKG shows normal: sinus rhythm, axis (Left axis deviation), intervals, QRS complexes (LVH), ST-T waves Rate: normal - EKG Data When compared to previous EKG there are: no significant change Interpretation: unchanged when compared t (08/06/19) - Radiology Data Radiology results: image reviewed interpreted by me: Chest x-ray does not show any acute process. There are no pleural effusions, obvious pneumonia and there is no pneumothorax. No significant cardiomegaly. - Medical Decision Making This patient presents with acute left-sided chest pain with some radiation to the left jaw and left shoulder. EKG did not have any morphology consistent with ST elevation myocardial infarction. Patient's labs have been mostly unremarkable. However the patient is a moderate heart score and continues to have discomfort despite IV analgesia. For this reason the patient will be admitted to the hospital for further evaluation and treatment and was accepted for admission by the hospitalist, Dr. Montes. Critical Care Time: No Critical care attestation.: If time is entered above; I have spent that time in minutes in the direct care of this critically ill patient, excluding procedure time. ED Disposition Clinical Impression: Acute chest pain, Chest pain, rule out acute myocardial infarction Disposition: OP ADMIT IP TO THIS HOSP Is pt being admited?: Yes Condition: Fair Instructions: Chest Pain (ED) Time of Disposition: 16:20
--- NOTE | 2020-09-29 12:52 | XRay Report ---
CHEST 1 VIEW INDICATION: Chest Pain. COMPARISON: 08/06/2019 FINDINGS: SUPPORT DEVICES: Cardiac leads project over the right atrium and right ventricle. HEART: Within normal limits. LUNGS/PLEURA: No acute air space or interstitial disease. ADDITIONAL FINDINGS: None. IMPRESSION: 1. No acute findings. Signer Name: Ty Arvizu MD Signed: 09/29/2020 12:48 PM Workstation Name: [email or web address] - [employer] Your Passion![id number]
[2020-09-29 14:07] LABS: BUN/Creatinine Ratio 16; Blood Urea Nitrogen 13 mg/dL (9-20); Calcium 9.4 mg/dL (8.4-10.2); Hemolysis Index 17
[2020-09-29 14:35] LABS: Basophils % (Auto) 0.5 % (0.0-1.8); Eosinophils # (Auto) 0.1 K/mm3 (0.0-0.4); Eosinophils % (Auto) 3.3 % (0.0-4.3); Hemoglobin 12.5 gm/dl (11.8-15.2); Lymphocytes # (Auto) 0.8 K/mm3 (1.2-5.4); Lymphocytes % (Auto) 19.5 % (13.4-35.0); Mean Corpuscular HGB Conc 34 % (32-34); Mean Corpuscular Volume 90 fl (84-94); Monocytes # (Auto) 0.5 K/mm3 (0.0-0.8); Monocytes % (Auto) 12.4 % (0.0-7.3); Platelet Count 160 K/mm3 (140-440); Red Blood Count 4.13 M/mm3 (3.65-5.03); Red Cell Distribution Width 15.6 % (13.2-15.2)
--- NOTE | 2020-09-29 15:12 | History and Physical Report ---
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 Patient reports "my chest hurt." Patient states that he experienced a sudden onset of pain in his chest today. Patient states that pain is 6/10, intermittent, localized to the left chest with radiation to the left shoulder and jaw, not worsened with exertion, not relieved with rest. EMS was notified and upon arrival the patient was found to be in distress and subsequently transported to [facility] for further care and evaluation of the aforementioned symptoms. The patient was seen and evaluated in the emergency department. All lab and imaging studies reviewed. The patient was found to have clinical symptoms consistent with diastolic CHF decompensation, angina, uncontrolled hypertension. Patient admitted to telemetry and initiated on CHF protocol. Cardiology team consulted in ED. Patient denies fever, chills, palpitations, productive cough, skin rash, recent ill contacts, unilateral leg swelling, calf pain, medication noncompliance, or known exposure to COVID-19. Prior admission on 08/06/2019 reviewed. All medication listed at time of admission has been reconciled. Advanced care planning conducted in ED. Past History Past Medical History: atrial fib, diabetes, DVT, hypertension, hyperlipidemia, pulmonary embolism, seizures, other (See HPI) Past Surgical History: No surgical history, Other (Reviewed) Social history: . denies: smoking, alcohol abuse, prescription drug abuse Family history: diabetes, hypertension Medications and Allergies Allergies Allergy/AdvReac Type Severity Reaction Status Date / Time acetaminophen [From Lortab] Allergy Unknown Verified 08/06/19 00:39 hydrocodone Allergy Unknown Verified 08/06/19 00:39 insulin detemir Allergy Unknown Verified 08/06/19 00:39 [From Levemir U-100 Insulin] Iodine and Iodide Containing Allergy Unknown Verified 08/06/19 00:39 Produc ketorolac [From Toradol] Allergy Unknown Verified 08/06/19 00:39 lacosamide [From Vimpat] Allergy Unknown Verified 08/06/19 00:39 latex Allergy Unknown Verified 08/06/19 00:39 levetiracetam [From Keppra] Allergy Unknown Verified 08/06/19 00:39 melon Allergy Unknown Verified 08/06/19 00:39 nitroglycerin Allergy Unknown Verified 08/06/19 00:39 nut - unspecified Allergy Unknown Verified 08/06/19 00:39 oxycodone Allergy Unknown Verified 08/06/19 00:39 phenylephrine Allergy Unknown Verified 08/06/19 00:39 prednisone Allergy Unknown Verified 08/06/19 00:39 propoxyphene [From Darvon] Allergy Unknown Verified 08/06/19 00:39 pyrilamine Allergy Unknown Verified 08/06/19 00:39 tramadol Allergy Unknown Verified 08/06/19 00:39 Home Medications Medication Instructions Recorded Confirmed Last Taken Type Apixaban [Eliquis] 5 mg PO BID 08/06/19 09/29/20 08/05/19 History AtorvaSTATin [Lipitor] 40 mg PO QHS 08/06/19 09/29/20 08/05/19 History Eslicarbazepine Acetate [Aptiom] 800 mg PO BID 08/06/19 09/29/20 08/05/19 History Insulin Glargine [Lantus VIAL] 28 units SUB-Q QHS 08/06/19 09/29/20 08/05/19 History Lispro Insulin [HumaLOG] 0 unit SQ QACHS 08/06/19 09/29/20 Unknown History Ondansetron HCl [Zofran] 4 mg PO Q6HR PRN 08/06/19 09/29/20 Unknown History Pregabalin [Lyrica] 200 mg QAM 08/06/19 09/29/20 1 Day Ago History ~08/05/19 Pregabalin [Lyrica] 400 mg PO QHS 08/06/19 09/29/20 1 Day Ago History ~08/05/19 Sertraline HCl [Zoloft] 150 mg PO QHS 08/06/19 09/29/20 08/05/19 History Zolpidem [Ambien] 6.15 mg PO QHS PRN 08/06/19 09/29/20 Unknown History Review of Systems Constitutional: no weight loss, no weight gain, no chills, no sweats Ears, nose, mouth and throat: no ear pain, no ear discharge, no decreased hearing, no nose pain, no nasal congestion Cardiovascular: chest pain, decreased exercise tolerance, no orthopnea, no claudication Respiratory: no cough, no cough with sputum, no excessive sputum, no shortness of breath Gastrointestinal: no abdominal pain, no vomiting, no diarrhea, no change in bowel habits, no hematemesis Genitourinary Male: no hematuria, no flank pain, no urinary hesitancy, no i ncontinence, no erectile dysfunction Rectal: no pain, no incontinence, no bleeding Musculoskeletal: no neck stiffness, no neck pain, no arm numbness/tingling, no low back pain, no leg numbness/tingling Integumentary: no rash, no pruritis, no sores, no wounds, no jaundice, no boils Neurological: no head injury, no paralysis, no parathesias, no numbness, no tingling, no seizures, no ataxia Psychiatric: no anxiety, no memory loss, no sleep disturbances, no hypersomnia, no change in appetite, no suicidal ideation Endocrine: no cold intolerance, no heat intolerance, no polydipsia, no polyuria, no nocturia, no flushing Hematologic/Lymphatic: no easy bruising, no easy bleeding, no lymphadenopathy, no lymphedema Allergic/Immunologic: no allergic rhinitis, no anaphylaxis, no angioedema Exam - Constitutional Vitals: Temp Pulse Resp BP Pulse Ox 98 F 72 16 155/93 98 09/29/20 12:22 09/29/20 12:22 09/29/20 12:22 09/29/20 12:22 09/29/20 12:22 General appearance: Present: mild distress, obese - EENT Eyes: Present: PERRL ENT: hearing intact, clear oral mucosa - Neck Neck: Present: supple, normal ROM - Respiratory Respiratory effort: normal Respiratory: bilateral: CTA - Cardiovascular Heart Sounds: Present: S1 & S2. Absent: rub, click - Extremities Extremities: pulses symmetrical, No edema Peripheral Pulses: within normal limits - Abdominal General gastrointestinal: Present: soft, non-tender, non-distended, normal bowel sounds Male genitourinary: Present: normal - Integumentary Integumentary: Present: clear, warm, dry - Musculoskeletal Musculoskeletal: gait normal, strength equal bilaterally - Psychiatric Psychiatric: appropriate mood/affect, intact judgment & insight - Neurologic Neurologic: CNII-XII intact, moves all extremities HEART Score - HEART Score EKG: Normal Age: 45-65 Risk factors: > 3 risk factors or hx of atherosclerotic disease Troponin: Troponin T < 0.010 ng/mL (0.00-0.029) 09/29/20 Unknown Troponin: < normal limit - Critical Actions Critical Actions: 0-3 pts:0.9-1.7%risk of adverse cardiac event.Candidate for discharge Results - Labs CBC & Chem 7: 09/29/20 Unknown 09/29/20 Unknown Labs: Abnormal lab results 09/29/20 09/29/20 Range/Units Unknown Unknown WBC 3.9 L (4.5-11.0) K/mm3 RDW 15.6 H (13.2-15.2) % [place] % (Auto) 12.4 H (0.0-7.3) % Lymph # (Auto) 0.8 L (1.2-5.4) K/mm3 Sodium 136 L (137-145) mmol/L Glucose 156 H (75-100) mg/dL Assessment and Plan - Patient Problems (1) Diastolic CHF Current Visit: Yes Status: Acute Qualifiers: Heart failure chronicity: acute Qualified Code(s): I50.31 - Acute diastolic (congestive) heart failure Plan to address problem: Strict I/O, monitor urine output every shift, blood pressure control, afterload reduction, echocardiogram ordered and is pending at time of admission, cardiology team consulted in ED, remote telemetry monitoring, thyroid panel magnesium level. (2) Angina at rest Current Visit: Yes Status: Acute Plan to address problem: Serial cardiac enzymes, EKG, remote telemetry monitoring, cardiology team consulted. (3) Obesity hypoventilation syndrome Current Visit: Yes Status: Acute Plan to address problem: Supplemental oxygen, pulse oximetry, nebulizer therapy, noninvasive positive pressure ventilation as clinically indicated, outpatient pulmonary follow-up for sleep study. (4) Hypertension Current Visit: Yes Status: Acute Qualifiers: Hypertension type: essential hypertension Qualified Code(s): I10 - Essential (primary) hypertension Plan to address problem: Monitor blood pressure every shift, continue medical management. (5) Hyperlipidemia Current Visit: Yes Status: Acute Qualifiers: Hyperlipidemia type: mixed hyperlipidemia Qualified Code(s): E78.2 - Mixed hyperlipidemia Plan to address problem: Balanced diet, risk factor reduction, low-cholesterol diet. (6) Atrial fibrillation Current Visit: Yes Status: Acute Qualifiers: Atrial fibrillation type: paroxysmal Qualified Code(s): I48.0 - Paroxysmal atrial fibrillation Plan to address problem: Continue therapeutic anticoagulation, supportive care, cardiology team consulted. (7) Diabetes Current Visit: Yes Status: Acute Plan to address problem: Consistent carbohydrate diet, insulin protocol, hypoglycemia protocol, Accu-Chek (8) Personal history of thromboembolic disease Current Visit: Yes Status: Acute Plan to address problem: Continue therapeutic anticoagulation, (9) DVT prophylaxis Current Visit: Yes Status: Acute Plan to address problem: SCD to bilateral lower extremities while in bed, continue therapeutic anticoagulation. (10) Advance care planning Current Visit: Yes Status: Acute Plan to address problem: Disease education conducted, patient is full code, care plan discussed, prognosis discussed, diagnosis discussed patient acknowledges understanding and agreement with care plan, +30 minutes.
[2020-09-29] MEDS ORDERED: ACETAMINOPHEN 325 MG TAB PO PRN (15:17)
[2020-09-29] MEDS ORDERED: ONDANSETRON 4 MG/2 ML INJ IV PRN (15:17)
[2020-09-29] MEDS ORDERED: ALBUTEROL 2.5 MG/3 ML NEBU IH PRN (15:17)
[2020-09-29] MEDS ORDERED: NON-FORMULARY EACH (Ondansetron Hcl [Zofran] 4 MG Tablet) PO PRN (15:19)
[2020-09-29] MEDS ORDERED: ONDANSETRON 4 MG ODT TAB PO PRN (15:25)
[2020-09-29] MEDS ORDERED: ZOLPIDEM 5 MG TAB PO PRN (15:41)
[2020-09-29] MEDS ORDERED: DEXTROSE 50% IN WATER (25GM) 50 ML SYRINGE IV PRN (15:41)
[2020-09-29 16:19] LABS: Free T4 (Free Thyroxine) 0.65 ng/dL (0.76-1.46)
[2020-09-29] MEDS: INSULIN REGULAR, HUMAN 100 UNITS/1 ML SUB-Q SCH ×2 (17:48→22:01)
[2020-09-29 20:01] LABS: Free T4 (Free Thyroxine) 0.7 ng/dL (0.76-1.46)
[2020-09-29] MEDS: PREGABALIN 75 MG CAP PO SCH (21:59)
[2020-09-29] MEDS ORDERED: NON-FORMULARY EACH (Pregabalin [Lyrica] 200 MG Capsule) PO SCH (22:00)
[2020-09-29] MEDS ORDERED: PREGABALIN 50 MG CAP PO SCH (22:00)
[2020-09-29] MEDS: PREGABALIN 25 MG CAP PO SCH (22:00)
[2020-09-29] MEDS: FAMOTIDINE 10 MG TAB PO SCH (22:00)
[2020-09-29] MEDS: SERTRALINE 100 MG TAB PO SCH (22:00)
[2020-09-29] MEDS: APIXABAN 5 MG TAB PO SCH (22:02)
[2020-09-29] MEDS: MORPHINE 2 MG/1 ML INJ IV PRN (23:46)
[2020-09-30] MEDS ORDERED: LORazepam 2 MG/ML VIAL IV PRN (01:01)
[2020-09-30] MEDS: LORazepam 2 MG/ML VIAL IV PRN ×4 (01:10→23:04)
[2020-09-30] MEDS: MORPHINE 2 MG/1 ML INJ IV PRN ×2 (06:53→17:43)
[2020-09-30 07:43] LABS: BUN/Creatinine Ratio 15; Blood Urea Nitrogen 12 mg/dL (9-20); Calcium 8.7 mg/dL (8.4-10.2); Hemolysis Index 9
--- NOTE | 2020-09-30 08:44 | Progress Note ---
Assessment and Plan Assessment and plan: Chest pain. Obesity hypoventilation syndrome. Hypertension Hyperlipidemia Atrial fibrillation Diabetes mellitus type 2. History of DVT. 09/30/2020. Patient has no evidence of heart failure with negative chest x-ray and normal BNP. Await cardiology evaluation for chest pain, EKG and cardiac isoenzymes negative. Follow-up echocardiogram. Bilateral lower extremity Dopplers. Continue home Eliquis 5 mg p.o. twice daily History Interval history: No new issues overnight. Patient complains of bilateral calf pain. Hospitalist Physical - Constitutional Vitals: Temp Pulse Resp BP Pulse Ox 97.6 F 71 18 130/78 93 09/30/20 06:03 09/30/20 06:03 09/30/20 06:03 09/30/20 06:03 09/30/20 06:03 General appearance: Present: no acute distress, obese - EENT Eyes: Present: PERRL, EOM intact ENT: hearing intact, clear oral mucosa, dentition normal - Neck Neck: Present: supple, normal ROM - Respiratory Respiratory effort: normal Respiratory: bilateral: CTA - Cardiovascular Rhythm: regular Heart Sounds: Present: S1 & S2. Absent: gallop, rub - Extremities Extremities: no ischemia, No edema, Full ROM - Abdominal General gastrointestinal: soft, non-tender, non-distended, normal bowel sounds - Integumentary Integumentary: Present: clear, warm, dry - Neurologic Neurologic: CNII-XII intact, moves all extremities HEART Score - HEART Score EKG: Normal Age: 45-65 Risk factors: > 3 risk factors or hx of atherosclerotic disease Troponin: Troponin T < 0.010 ng/mL (0.00-0.029) 09/29/20 Unknown Troponin: < normal limit - Critical Actions Critical Actions: 0-3 pts:0.9-1.7%risk of adverse cardiac event.Candidate for discharge Results - Labs CBC & Chem 7: 09/29/20 Unknown 09/30/20 06:47 Labs: Laboratory Last Values WBC 3.9 K/mm3 (4.5-11.0) L 09/29/20 Unknown RBC 4.13 M/mm3 (3.65-5.03) 09/29/20 Unknown Hgb 12.5 gm/dl (11.8-15.2) 09/29/20 Unknown Hct 37.0 % (35.5-45.6) 09/29/20 Unknown MCV 90 fl (84-94) 09/29/20 Unknown MCH 30 pg (28-32) 09/29/20 Unknown MCHC 34 % (32-34) 09/29/20 Unknown RDW 15.6 % (13.2-15.2) H 09/29/20 Unknown Plt Count 160 K/mm3 (140-440) 09/29/20 Unknown Lymph % (Auto) 19.5 % (13.4-35.0) 09/29/20 Unknown [place] % (Auto) 12.4 % (0.0-7.3) H 09/29/20 Unknown Eos % (Auto) 3.3 % (0.0-4.3) 09/29/20 Unknown Baso % (Auto) 0.5 % (0.0-1.8) 09/29/20 Unknown Lymph # (Auto) 0.8 K/mm3 (1.2-5.4) L 09/29/20 Unknown [place] # (Auto) 0.5 K/mm3 (0.0-0.8) 09/29/20 Unknown Eos # (Auto) 0.1 K/mm3 (0.0-0.4) 09/29/20 Unknown Baso # (Auto) 0.0 K/mm3 (0.0-0.1) 09/29/20 Unknown Seg Neutrophils % 64.3 % (40.0-70.0) 09/29/20 Unknown Seg Neutrophils # 2.5 K/mm3 (1.8-7.7) 09/29/20 Unknown Sodium 136 mmol/L (137-145) L 09/30/20 06:47 Potassium 4.1 mmol/L (3.6-5.0) 09/30/20 06:47 Chloride 99.5 mmol/L (98-107) 09/30/20 06:47 Carbon Dioxide 27 mmol/L (22-30) 09/30/20 06:47 Anion Gap 14 mmol/L 09/30/20 06:47 BUN 12 mg/dL (9-20) 09/30/20 06:47 Creatinine 0.8 mg/dL (0.8-1.3) 09/30/20 06:47 Estimated GFR > 60 ml/min 09/30/20 06:47 BUN/Creatinine Ratio 15 % 09/30/20 06:47 Glucose 206 mg/dL (75-100) H 09/30/20 06:47 POC Glucose 129 mg/dL (70-105) H 09/29/20 21:49 Calcium 8.7 mg/dL (8.4-10.2) 09/30/20 06:47 Magnesium 1.80 mg/dL (1.7-2.3) 09/29/20 19:12 Troponin T < 0.010 ng/mL (0.00-0.029) 09/29/20 Unknown NT-Pro-B Natriuret Pep 41.30 pg/mL (0-900) 09/29/20 19:12 TSH 2.910 mlU/mL (0.270-4.200) 09/29/20 19:12 Free T4 0.70 ng/dL (0.76-1.46) L 09/29/20 19:12 Active Medications - Current Medications Current Medications: Generic Name Dose Route Start Last Admin Trade Name Freq PRN Reason Stop Dose Admin Albuterol 2.5 mg 09/29/20 15:17 Albuterol 2.5 Mg/3 Ml Nebu IH Q4HRT PRN Shortness Of Breath Apixaban 5 mg 09/29/20 22:00 09/29/20 22:02 Apixaban 5 Mg Tab PO 5 mg BID LORI Administration Protocol Atorvastatin Calcium 40 mg 09/29/20 22:00 09/29/20 22:00 Atorvastatin 40 Mg Tab PO 40 mg QHS LORI Administration Dextrose 50 ml 09/29/20 15:41 Dextrose 50% In Water (25gm) 50 Ml Syringe IV Q30MIN PRN Hypoglycemia Protocol Famotidine 10 mg 09/29/20 22:00 09/29/20 22:00 Famotidine 10 Mg Tab PO 10 mg BID LORI Administration Insulin Human Regular 0 units 09/29/20 16:30 09/29/20 22:01 Insulin Regular, Human 100 Units/1 Ml SUB-Q Not Given ACHS LORI Protocol Lorazepam 2 mg 09/30/20 01:05 09/30/20 07:47 Lorazepam 2 Mg/Ml Vial IV 2 mg Q4H PRN Administration Seizures Miscellaneous Medication 1,600 mg 09/30/20 10:00 Eslicarbazepine Acetate [Aptiom] PO QAM LORI Morphine Sulfate 2 mg 09/29/20 23:36 09/30/20 06:53 Morphine 2 Mg/1 Ml Inj IV 2 mg Q4H PRN Administration Pain, Moderate (4-6) Ondansetron HCl 4 mg 09/29/20 15:17 Ondansetron 4 Mg/2 Ml Inj IV Q8H PRN Nausea And Vomiting Ondansetron HCl 4 mg 09/29/20 15:25 Ondansetron 4 Mg Odt Tab PO Q6H PRN Nausea And Vomiting Pregabalin 200 mg 09/30/20 10:00 Pregabalin 50 Mg Cap PO QAM LORI Pregabalin 375 mg 09/29/20 22:00 09/29/20 21:59 Pregabalin 75 Mg Cap PO 375 mg HS LORI Administration Pregabalin 25 mg 09/29/20 22:00 09/29/20 22:00 Pregabalin 25 Mg Cap PO 25 mg HS LORI Administration Sertraline HCl 150 mg 09/29/20 22:00 09/29/20 22:00 Sertraline 100 Mg Tab PO 150 mg QHS LORI Administration Sodium Chloride 10 ml 09/29/20 22:00 09/29/20 22:01 Sodium Chloride 0.9% 10 Ml Flush Syringe IV 10 ml BID LORI Administration Sodium Chloride 10 ml 09/29/20 15:17 09/30/20 06:55 Sodium Chloride 0.9% 10 Ml Flush Syringe IV 10 ml PRN PRN Administration LINE FLUSH Zolpidem Tartrate 6.15 mg 09/29/20 15:41 Zolpidem 5 Mg Tab PO QHS PRN Sleep Nutrition/Malnutrition Assess - Dietary Evaluation Nutrition/Malnutrition Findings: Nutrition Notes Start: 09/30/20 07:40 Freq: Status: Active Protocol: Document 09/30/20 07:40 LP (Rec: 09/30/20 07:41 LP [id number]) Nutrition Notes Need for Assessment generated from: 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 Pt denies need for education at this time. Nutrition Intervention Revisit per MD consult or patient Sign Off request:
--- NOTE | 2020-09-30 09:51 | Consultation ---
REFERRING PHYSICIAN: Hospitalist service. HISTORY OF PRESENT ILLNESS: He is a pleasant 60-year-old gentleman with history of HIV, past polysubstance abuse, pacemaker placement, cardiac catheterization in 2019 revealed normal coronaries, had an admission about a year ago here for noncardiac chest pain. Also, has a history of diabetes, hypertension, hyperlipidemia, history of cholecystectomy. . Family history of hypertension. He has many allergies, please review chart for this. Inpatient and outpatient medications reviewed. Also, has atrial fibrillation, on Eliquis. History of DVT, PE in the past as well. 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 He has been having shortness of breath and sharp chest pain. He is seen in the echo lab, not having any chest pain or shortness of breath. States he feels better. No syncope or presyncope. No lightheadedness or dizziness. He is currently feeling better. Shortness of breath is improved. PHYSICAL EXAMINATION: VITAL SIGNS: Blood pressure is 120/50. He is afebrile. Tele reveals sinus rhythm in the 90s, O2 sats 99% on room air. HEENT: Sclerae icteric, pale. NECK: Supple, no masses, no JVD. CHEST: Clear to auscultation bilaterally. Good air movement. CARDIOVASCULAR: Regular rhythm, S1, S2. ABDOMEN: Soft, nontender, nondistended. Normoactive bowel sounds in 4 quadrants. No masses or bruits. EXTREMITIES: No cyanosis, clubbing, edema. Good peripheral pulses. SKIN: Intact. No rashes. LABORATORY DATA: ECG reveals atrial paced rhythm, LVH, no ST segment shift. Troponins are negative x 3. Creatinine and potassium are normal. Hemoglobin is 12.5, hematocrit 37, platelets 160. Chest x-ray is unremarkable per radiology. CONCLUSIONS: In summary, the patient is a pleasant 60-year-old gentleman with history of hypertension, hyperlipidemia, atrial fibrillation, HIV, history of DVT, who presents here for shortness of breath and atypical chest pain. EKG and first 3 cardiac enzymes are negative. He is asymptomatic at this time. We will also check a D-dimer, followup echocardiogram. If D-dimer is unremarkable, consider a nuclear stress test in a.m. Thank you for this consultation. We will be happy to follow along with you. Continue current medications. Add baby aspirin. We will continue to follow along. JOB# [id number] TAO/NTS
[2020-09-30] MEDS: FAMOTIDINE 10 MG TAB PO SCH ×2 (09:53→22:23)
[2020-09-30] MEDS: APIXABAN 5 MG TAB PO SCH ×2 (09:54→22:24)
[2020-09-30] MEDS: PREGABALIN 50 MG CAP PO SCH (09:54)
[2020-09-30] MEDS: ESLICARBAZEPINE ACETATE 800 MG PO SCH (09:56)
[2020-09-30] MEDS ORDERED: NON-FORMULARY EACH (Pregabalin [Lyrica] 200 MG Capsule) PO SCH (10:00)
[2020-09-30] MEDS: INSULIN REGULAR, HUMAN 100 UNITS/1 ML SUB-Q SCH ×4 (10:04→22:37)
--- NOTE | 2020-09-30 10:04 | Vascular Lab Report ---
DUPLEX DOPPLER LOWER EXTREMITY VEINS, BILATERAL INDICATION / CLINICAL INFORMATION: Bilateral calf pain, history of DVT, currently on Eliquis. TECHNIQUE: Duplex doppler imaging was performed through the veins of both lower extremities using venous [place] and other maneuvers. COMPARISON: None available. FINDINGS: RIGHT COMMON FEMORAL VEIN: Negative. RIGHT FEMORAL VEIN: Negative. RIGHT POPLITEAL VEIN: Negative. RIGHT CALF VEINS: Negative. LEFT COMMON FEMORAL VEIN: Negative. LEFT FEMORAL VEIN: Negative. LEFT POPLITEAL VEIN: Negative. LEFT CALF VEINS: Negative. ADDITIONAL FINDINGS: None. IMPRESSION: 1. No sonographic evidence for DVT in either lower extremity. Signer Name: Ruben Brito MD Signed: 09/30/2020 9:59 AM Workstation Name: [id number]
--- NOTE | 2020-09-30 10:05 | Event Note ---
full consult dictated thx
[2020-09-30] MEDS: ASPIRIN 81 MG TAB CHEW PO SCH (12:30)
[2020-09-30] MEDS: PREGABALIN 75 MG CAP PO SCH (22:29)
[2020-09-30] MEDS: SERTRALINE 100 MG TAB PO SCH (22:30)
[2020-09-30] MEDS: PREGABALIN 25 MG CAP PO SCH (22:30)
[2020-10-01] MEDS: MORPHINE 2 MG/1 ML INJ IV PRN ×4 (05:37→20:52)
[2020-10-01] MEDS: INSULIN REGULAR, HUMAN 100 UNITS/1 ML SUB-Q SCH ×4 (07:43→22:39)
--- NOTE | 2020-10-01 08:20 | Progress Note ---
Assessment and Plan Assessment and plan: Chest pain. Obesity hypoventilation syndrome. Hypertension Hyperlipidemia Atrial fibrillation Diabetes mellitus type 2. History of DVT. 09/30/2020. Patient has no evidence of heart failure with negative chest x-ray and normal BNP. Await cardiology evaluation for chest pain, EKG and cardiac isoenzymes negative. Follow-up echocardiogram. Bilateral lower extremity Dopplers. Continue home Eliquis 5 mg p.o. twice daily 10/01/2020. Echocardiogram reveals left ventricular systolic function that is normal with EF of 60 to 65%. Mild concentric left ventricular hypertrophy. Mild pulmonary hypertension with RVSP of 40-45 mmHg. CTA of the chest and stress test ordered but patient refused stress test. Cardiology following. History Interval history: No new issues overnight. Hospitalist Physical - Constitutional Vitals: Temp Pulse Resp BP Pulse Ox 97.4 F L 74 20 132/70 96 10/01/20 07:44 10/01/20 07:44 10/01/20 00:08 10/01/20 07:44 10/01/20 07:44 General appearance: Present: no acute distress, obese - EENT Eyes: Present: PERRL, EOM intact ENT: hearing intact, clear oral mucosa, dentition normal - Neck Neck: Present: supple, normal ROM - Respiratory Respiratory effort: normal Respiratory: bilateral: CTA - Cardiovascular Rhythm: regular Heart Sounds: Present: S1 & S2. Absent: gallop, rub - Extremities Extremities: no ischemia, No edema, Full ROM - Abdominal General gastrointestinal: soft, non-tender, non-distended, normal bowel sounds - Integumentary Integumentary: Present: clear, warm, dry - Neurologic Neurologic: CNII-XII intact, moves all extremities HEART Score - HEART Score EKG: Normal Age: 45-65 Risk factors: > 3 risk factors or hx of atherosclerotic disease Troponin: Troponin T < 0.010 ng/mL (0.00-0.029) 09/29/20 Unknown Troponin: < normal limit - Critical Actions Critical Actions: 0-3 pts:0.9-1.7%risk of adverse cardiac event.Candidate for discharge Results - Labs CBC & Chem 7: 09/29/20 Unknown 09/30/20 06:47 Labs: Laboratory Last Values WBC 3.9 K/mm3 (4.5-11.0) L 09/29/20 Unknown RBC 4.13 M/mm3 (3.65-5.03) 09/29/20 Unknown Hgb 12.5 gm/dl (11.8-15.2) 09/29/20 Unknown Hct 37.0 % (35.5-45.6) 09/29/20 Unknown MCV 90 fl (84-94) 09/29/20 Unknown MCH 30 pg (28-32) 09/29/20 Unknown MCHC 34 % (32-34) 09/29/20 Unknown RDW 15.6 % (13.2-15.2) H 09/29/20 Unknown Plt Count 160 K/mm3 (140-440) 09/29/20 Unknown Lymph % (Auto) 19.5 % (13.4-35.0) 09/29/20 Unknown Quay % (Auto) 12.4 % (0.0-7.3) H 09/29/20 Unknown Eos % (Auto) 3.3 % (0.0-4.3) 09/29/20 Unknown Baso % (Auto) 0.5 % (0.0-1.8) 09/29/20 Unknown Lymph # (Auto) 0.8 K/mm3 (1.2-5.4) L 09/29/20 Unknown Quay # (Auto) 0.5 K/mm3 (0.0-0.8) 09/29/20 Unknown Eos # (Auto) 0.1 K/mm3 (0.0-0.4) 09/29/20 Unknown Baso # (Auto) 0.0 K/mm3 (0.0-0.1) 09/29/20 Unknown Seg Neutrophils % 64.3 % (40.0-70.0) 09/29/20 Unknown Seg Neutrophils # 2.5 K/mm3 (1.8-7.7) 09/29/20 Unknown D-Dimer 111.0 ng/mlDDU (0-234) 09/30/20 10:05 Sodium 136 mmol/L (137-145) L 09/30/20 06:47 Potassium 4.1 mmol/L (3.6-5.0) 09/30/20 06:47 Chloride 99.5 mmol/L (98-107) 09/30/20 06:47 Carbon Dioxide 27 mmol/L (22-30) 09/30/20 06:47 Anion Gap 14 mmol/L 09/30/20 06:47 BUN 12 mg/dL (9-20) 09/30/20 06:47 Creatinine 0.8 mg/dL (0.8-1.3) 09/30/20 06:47 Estimated GFR > 60 ml/min 09/30/20 06:47 BUN/Creatinine Ratio 15 % 09/30/20 06:47 Glucose 206 mg/dL (75-100) H 09/30/20 06:47 POC Glucose 145 mg/dL (70-105) H 10/01/20 07:41 Calcium 8.7 mg/dL (8.4-10.2) 09/30/20 06:47 Magnesium 1.80 mg/dL (1.7-2.3) 09/29/20 19:12 Troponin T < 0.010 ng/mL (0.00-0.029) 09/29/20 Unknown NT-Pro-B Natriuret Pep 41.30 pg/mL (0-900) 09/29/20 19:12 TSH 2.910 mlU/mL (0.270-4.200) 09/29/20 19:12 Free T4 0.70 ng/dL (0.76-1.46) L 09/29/20 19:12 Nevarez/IV: Voiding Method Urinal Active Medications - Current Medications Current Medications: Generic Name Dose Route Start Last Admin Trade Name Freq PRN Reason Stop Dose Admin Albuterol 2.5 mg 09/29/20 15:17 Albuterol 2.5 Mg/3 Ml Nebu IH Q4HRT PRN Shortness Of Breath Apixaban 5 mg 09/29/20 22:00 09/30/20 22:24 Apixaban 5 Mg Tab PO 5 mg BID LORI Administration Protocol Aspirin 81 mg 09/30/20 11:00 09/30/20 12:30 Aspirin 81 Mg Tab Chew PO 81 mg QDAY LORI Administration Atorvastatin Calcium 40 mg 09/29/20 22:00 09/30/20 22:24 Atorvastatin 40 Mg Tab PO 40 mg QHS LORI Administration Dextrose 50 ml 09/29/20 15:41 Dextrose 50% In Water (25gm) 50 Ml Syringe IV Q30MIN PRN Hypoglycemia Protocol Famotidine 10 mg 09/29/20 22:00 09/30/20 22:23 Famotidine 10 Mg Tab PO 10 mg BID LORI Administration Insulin Human Regular 0 units 09/29/20 16:30 10/01/20 07:43 Insulin Regular, Human 100 Units/1 Ml SUB-Q Not Given ACHS [facility] Protocol Lorazepam 2 mg 09/30/20 01:05 09/30/20 23:04 Lorazepam 2 Mg/Ml Vial IV 2 mg Q4H PRN Administration Seizures Miscellaneous Medication 1,600 mg 09/30/20 10:00 09/30/20 09:56 Eslicarbazepine Acetate [Aptiom] PO 1,600 mg QAM LORI Administration Morphine Sulfate 2 mg 09/29/20 23:36 10/01/20 05:37 Morphine 2 Mg/1 Ml Inj IV 2 mg Q4H PRN Administration Pain, Moderate (4-6) Ondansetron HCl 4 mg 09/29/20 15:17 Ondansetron 4 Mg/2 Ml Inj IV Q8H PRN Nausea And Vomiting Ondansetron HCl 4 mg 09/29/20 15:25 Ondansetron 4 Mg Odt Tab PO Q6H PRN Nausea And Vomiting Pregabalin 200 mg 09/30/20 10:00 09/30/20 09:54 Pregabalin 50 Mg Cap PO 200 mg QAM LORI Administration Pregabalin 375 mg 09/29/20 22:00 09/30/20 22:29 Pregabalin 75 Mg Cap PO Not Given HS LORI Pregabalin 25 mg 09/29/20 22:00 09/30/20 22:30 Pregabalin 25 Mg Cap PO Not Given HS LORI Sertraline HCl 150 mg 09/29/20 22:00 09/30/20 22:30 Sertraline 100 Mg Tab PO Not Given QHS LORI Sodium Chloride 10 ml 09/29/20 22:00 09/30/20 22:29 Sodium Chloride 0.9% 10 Ml Flush Syringe IV 10 ml BID LORI Administration Sodium Chloride 10 ml 09/29/20 15:17 09/30/20 06:55 Sodium Chloride 0.9% 10 Ml Flush Syringe IV 10 ml PRN PRN Administration LINE FLUSH Zolpidem Tartrate 6.15 mg 09/29/20 15:41 Zolpidem 5 Mg Tab PO QHS PRN Sleep Nutrition/Malnutrition Assess - Dietary Evaluation Nutrition/Malnutrition Findings: Nutrition Notes Start: 09/30/20 07:40 Freq: Status: Active Protocol: Document 09/30/20 07:40 LP (Rec: 09/30/20 07:41 LP [id number]) Nutrition Notes Need for 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 Pt denies need for education at this time. Nutrition Intervention Revisit per MD consult or patient Sign Off request:
[2020-10-01] MEDS ORDERED: REGADENOSON 0.4 MG/5 ML INJ IV ONE (09:05)
--- NOTE | 2020-10-01 10:12 | Progress Note ---
Assessment and Plan tte reviewed - EF 60-65%, mild LVH, pseudonormalization. Pt was initially refusing stress testing but is currently agreeable. Proceed with lexiscan MPI stress test, await findings. The patient has been seen in conjunction with Dr. Tena Faustin who agrees with the assessment and plan of care. - Patient Problems (1) Chest pain Current Visit: Yes Status: Acute Qualifiers: Chest pain type: unspecified Qualified Code(s): R07.9 - Chest pain, unspecified (2) Normal coronary angiogram Current Visit: Yes Status: Chronic (3) Hypertension Current Visit: Yes Status: Chronic Qualifiers: Hypertension type: essential hypertension Qualified Code(s): I10 - Essential (primary) hypertension (4) Hyperlipidemia Current Visit: Yes Status: Chronic Qualifiers: Hyperlipidemia type: mixed hyperlipidemia Qualified Code(s): E78.2 - Mixed hyperlipidemia (5) Diabetes Current Visit: Yes Status: Chronic (6) Seizure disorder Current Visit: Yes Status: Chronic (7) HIV (human immunodeficiency virus infection) Current Visit: Yes Status: Chronic (8) Cardiac pacemaker in situ Current Visit: Yes Status: Chronic Subjective Date of service: 10/01/20 Principal diagnosis: cp Interval history: pt resting comfortably in bed, was initially refusing stress testing but is currently agreeable. tele reviewed - in SR HR 70s. Objective Last Vital Signs Temp 97.4 F L 10/01/20 07:44 Pulse 74 10/01/20 07:44 Resp 20 10/01/20 00:08 BP 132/70 10/01/20 07:44 Pulse Ox 95 10/01/20 08:27 - Physical Examination General: No Apparent Distress HEENT: Positive: PERRL, Normocephaly, Mucus Membranes Moist Neck: Positive: neck supple, trachea midline Cardiac: Positive: Reg Rate and Rhythm, S1/S2 Lungs: Positive: Decreased Breath Sounds Neuro: Positive: Grossly Intact Abdomen: Negative: Tender Skin: Negative: Rash Musculoskeletal: No Pain Extremities: Absent: edema - Imaging and Cardiology EKG: report reviewed, image reviewed Echo: report reviewed - Telemetry EKG Rhythm: Sinus Rhythm
[2020-10-01] MEDS: FAMOTIDINE 10 MG TAB PO SCH ×2 (11:32→22:23)
[2020-10-01] MEDS: ASPIRIN 81 MG TAB CHEW PO SCH (11:32)
[2020-10-01] MEDS: APIXABAN 5 MG TAB PO SCH ×2 (11:33→22:25)
[2020-10-01] MEDS: PREGABALIN 50 MG CAP PO SCH (11:38)
--- NOTE | 2020-10-01 11:48 | Treadmill Report ---
REFERRING PHYSICIAN: Hospitalist service. PROTOCOL: The patient was assessed in postoperative state, given 10 mCi of technetium 99m at rest. The patient underwent rest imaging. The patient underwent Lexiscan stress test per standard protocol. At peak stress, the patient was given 26 mCi of technetium 99m. Shortly thereafter, the patient underwent stress imaging. Raw imaging reveals mild GI artifact, no significant motion artifact. SPECT imaging examined carefully in horizontal long axis, vertical long axis, short axis views. There is normal mitral uptake of radioisotope in all reported segments. No evidence of a significant fixed or reversible perfusion defects, suggestive of prior infarction or ischemia. Gated wall motion reveals normal systolic thickening. CONCLUSION: 1. Normal myocardial perfusion scan without evidence of active ischemia or prior infarction. 2. Normal left ventricular systolic performance without evidence of transient ischemic dilatation or stress-induced segmental wall motion. JOB# [id number] TAO/NATHAN
[2020-10-01] MEDS: ESLICARBAZEPINE ACETATE 800 MG PO SCH (11:51)
--- NOTE | 2020-10-01 13:31 | Event Note ---
Date: 10/01/20 S/p lexiscan MPI stress test today which was negative. Currently stable cardiac status. Chest pain currently resolved. Pt may discharge from cardiology. Recommend pt follow up with primary cardiology team at [facility] within 1-2 weeks. Erika JIMENEZ NP / DR. Tena MANCILLA
[2020-10-01] MEDS ORDERED: ZOLPIDEM 5 MG TAB PO PRN (22:00)
[2020-10-01] MEDS: SERTRALINE 100 MG TAB PO SCH (22:22)
[2020-10-01] MEDS: LORazepam 2 MG/ML VIAL IV PRN (22:25)
[2020-10-01] MEDS: PREGABALIN 75 MG CAP PO SCH (22:34)
[2020-10-01] MEDS: PREGABALIN 25 MG CAP PO SCH (22:35)
[2020-10-02] MEDS: MORPHINE 2 MG/1 ML INJ IV PRN ×2 (01:25→06:06)
[2020-10-02] MEDS: INSULIN REGULAR, HUMAN 100 UNITS/1 ML SUB-Q SCH ×2 (07:57→11:56)
[2020-10-02] MEDS: FAMOTIDINE 10 MG TAB PO SCH (09:55)
[2020-10-02] MEDS: ASPIRIN 81 MG TAB CHEW PO SCH (09:55)
[2020-10-02] MEDS: ESLICARBAZEPINE ACETATE 800 MG PO SCH (09:56)
[2020-10-02] MEDS: PREGABALIN 50 MG CAP PO SCH (09:56)
[2020-10-02] MEDS: APIXABAN 5 MG TAB PO SCH (09:56)
[2020-10-02 12:03] VITALS: BP 132/87
--- NOTE | 2020-10-02 12:13 | Discharge Summary ---
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 fib, diabetes mellitus, systolic CHF, history of PE Condition: Fair Hospital course: History of present illness: 60 YO Male with Paroxysmal Atrial Fib, HTN, Obesity, HLD, DM complicated by Peripheral Neuropathy, DVT/PE on Therapeutic Anticoagulation, Seizure Disorder, Asthma, Cardiomyopathy S/P Pacemaker placement presents to ED for evaluation. Patient reports "my chest hurt." Patient states that he experienced a sudden onset of pain in his chest today. Patient states that pain is 6/10, intermittent, localized to the left chest with radiation to the left shoulder and jaw, not worsened with exertion, not relieved with rest. EMS was notified and upon arrival the patient was found to be in distress and subsequently transported to [facility] for further care and evaluation of the aforementioned symptoms. The patient was seen and evaluated in the emergency department. All lab and imaging studies reviewed. The patient was found to have clinical symptoms consistent with diastolic CHF decompensation, angina, uncontrolled hypertension. Patient admitted to telemetry and initiated on CHF protocol. Cardiology team consulted in ED. Patient denies fever, chills, palpitations, productive cough, skin rash, recent ill contacts, unilateral leg swelling, calf pain, medication noncompliance, or known exposure to COVID-19. Prior admission on 08/06/2019 reviewed. All medication listed at time of admission has been reconciled. Advanced care planning conducted in ED. Hospital course Chest pain. Obesity hypoventilation syndrome. Hypertension Hyperlipidemia Atrial fibrillation Diabetes mellitus type 2. History of DVT. 09/30/2020. Patient has no evidence of heart failure with negative chest x-ray and normal BNP. Await cardiology evaluation for chest pain, EKG and cardiac isoenzymes negative. Follow-up echocardiogram. Bilateral lower extremity Dopplers. Continue home Eliquis 5 mg p.o. twice daily 10/01/2020. Echocardiogram reveals left ventricular systolic function that is normal with EF of 60 to 65%. Mild concentric left ventricular hypertrophy. Mild pulmonary hypertension with RVSP of 40-45 mmHg. CTA of the chest and stress test ordered but patient refused stress test. Cardiology following. 10/02/2020; patient had stress test yesterday due to for acute ischemia. Echocardiogram reveals left ventricular systolic function that is normal with EF of 60 to 65%. Mild concentric left ventricular hypertrophy. Mild pulmonary hypertension with RVSP of 40-45 mmHg. Patient does not have chest pain. Patient was evaluated by cardiology and was cleared for discharge. CTA was done and patient refused, VQ scan was ordered but I cancelled it because D-dimer is negative. Patient is already on Eliquis for A. fib. Patient discharged home in stable condition. Disposition: DC-01 TO HOME OR SELFCARE Time spent for discharge: 25 minutes - Discharge Diagnoses (1) Acute chest pain Status: Acute (2) Diastolic CHF Status: Acute Qualifiers: Heart failure chronicity: acute Qualified Code(s): I50.31 - Acute diastolic (congestive) heart failure (3) Atrial fibrillation Status: Acute Qualifiers: Atrial fibrillation type: paroxysmal Qualified Code(s): I48.0 - Paroxysmal atrial fibrillation (4) Personal history of thromboembolic disease Status: Acute (5) Cardiac pacemaker in situ Status: Chronic (6) Diabetes Status: Chronic (7) Hypertension Status: Chronic Qualifiers: Hypertension type: essential hypertension Qualified Code(s): I10 - Essential (primary) hypertension (8) Seizure disorder Status: Chronic Core Measure Documentation - Palliative Care Palliative Care/ Comfort Measures: Not Applicable - Core Measures Any of the following diagnoses?: none Exam - Physical Exam Narrative exam: Not in cardiopulmonary distress. The patient appeared well nourished and normally developed. Vital signs as documented. Head exam is unremarkable. No scleral icterus . Neck is without jugular venous distension, thyromegaly, or carotid bruits. Lungs are clear to auscultation. Cardiac exam reveals regular rate and Rhythm. Abdominal exam reveals normal bowel sounds, nontender, no organomegaly. Extremities are nonedematous and both femoral and pedal pulses are normal. RESIDENT INTERN: Alert and oriented 3. No focal weakness. - Constitutional Vitals: Temp Pulse Resp BP Pulse Ox 97.5 F L 78 18 132/87 93 10/02/20 11:16 10/02/20 11:16 10/02/20 11:16 10/02/20 11:16 10/02/20 11:16 Plan Activity: no restrictions Weight Bearing Status: Full Weight Bearing Diet: low cholesterol Follow up with: PRIMARY CARE, [Primary Care Provider] - 7 Days
== END 2020-10-02 14:20 | disposition home or self-care (01) ==
LOC: ED 12:17 → INTOOBSV 15:17 → 4A 15:17
PROVIDERS: ADMIT Internal Medicine; ATTEND Internal Medicine
DX: I11.0 Hypertensive heart disease with heart failure (principal); I50.31 Acute diastolic (congestive) heart failure; I20.8 Other forms of angina pectoris; E66.2 Morbid (severe) obesity with alveolar hypoventilation; E78.5 Hyperlipidemia, unspecified; E78.2 Mixed hyperlipidemia; I48.91 Unspecified atrial fibrillation; J45.909 Unspecified asthma, uncomplicated; R56.9 Unspecified convulsions; E11.9 Type 2 diabetes mellitus without complications; I74.9 Embolism and thrombosis of unspecified artery; E66.9 Obesity, unspecified; Z86.718 Personal history of other venous thrombosis and embolism; Z68.33 Body mass index [BMI] 33.0-33.9, adult; Z86.711 Personal history of pulmonary embolism; Z79.4 Long term (current) use of insulin; Z21 Asymptomatic human immunodeficiency virus [HIV] infection status; Z95.0 Presence of cardiac pacemaker
CPT/HCPCS: 36415; 71045; 78452; 80048; 82962; 83735; 83880; 84439; 84443; 84484; 85025; 85379; 93005; 93017; 93306; 93970; 96372; 96374; 96375; 96376; 99284; A9270; A9502; G0378; J2060; J2270; J2785; J1815

== ENCOUNTER 2020-10-22 13:09 | Emergency (ER) | payer BC | END 2020-10-22 13:15 | disposition left against medical advice (07) | LOC: ED 13:09 | DX: Z53.21 Procedure and treatment not carried out due to patient leaving prior to being seen by health care provider (principal) ==